=== PATIENT | female | born 1970 | race Caucasian/White ===

== ENCOUNTER 2018-07-07 22:24 | Emergency (ER) | payer BC, OTHER ==
[2018-07-07] MEDS ORDERED: ASPIRIN 81 MG TABLET, CHEWABLE PO ONE (23:16)
[2018-07-08] MEDS ORDERED: IPRATROPIUM/ALBUTEROL 0.5-2.5 MG/3 ML AMPUL NEB ONE (00:28)
--- NOTE | 2018-07-08 00:34 | ER Document Report ---
ED Medical Screen (RME) - General Chief Complaint: Chest Pain Stated Complaint: CHEST PAIN Time Seen by Provider: 07/08/18 00:27 Mode of Arrival: Ambulatory Information source: Patient Notes: Patient is a 48-year-old female who presents to the emergency department with cough, sore throat, chest pain and shortness of breath. Patient reports that she has had chest pain for 10 days after spraying and aerosolized brush killer in her yard which she accidentally inhaled. Patient reports that over the last 3-4 days she has had shortness of breath with cough, patient is unable to take a full breath without having bronchospasm. Patient denies any nausea, vomiting or diaphoresis, and patient denies any radiation of the chest pain. Exam: Lung sounds clear to auscultation bilaterally, bronchospasm with deep breath. I have greeted and performed a rapid initial assessment of this patient. A comprehensive ED assessment and evaluation of the patient, analysis of test results and completion of the medical decision making process will be conducted by additional ED providers. Dictation of this chart was performed using voice recognition software; therefore, there may be some unintended grammatical errors. TRAVEL OUTSIDE OF THE [place] IN LAST 30 DAYS: No - Related Data Allergies/Adverse Reactions: No Known Allergies Allergy (Unverified 07/07/18 22:30) Physical Exam - Vital signs Vitals: Temp Pulse Resp BP Pulse Ox 100.2 F 106 H 16 126/76 H 94 07/07/18 22:40 07/07/18 22:40 07/07/18 22:40 07/07/18 22:40 07/07/18 22:40 Course - Vital Signs Vital signs: Temp Pulse Resp BP Pulse Ox 100.2 F 106 H 16 126/76 H 94 07/07/18 22:40 07/07/18 22:40 07/07/18 22:40 07/07/18 22:40 07/07/18 22:40 - Laboratory Result Diagrams: 07/07/18 23:43 07/07/18 23:43 Doctor's Discharge - Discharge Referrals: BRODY SWAIN MD [Primary Care Provider] - Follow up as needed
[2018-07-08 00:36] LABS: ABSOLUTE EOSINOPHILS # (AUTO) 0.5 10^3/uL (0.0-0.6); ABSOLUTE LYMPHOCYTES (AUTO) 1.4 10^3/uL (0.5-4.7); ABSOLUTE MONOCYTES (AUTO) 0.7 10^3/uL (0.1-1.4); ABSOLUTE NEUT (AUTO) 7.4 10^3/uL (1.7-8.2); BASOPHILS % (AUTO) 0.1 % (0-2); EOSINOPHILS % (AUTO) 5.2 % (0-6); HEMOGLOBIN 13.3 g/dL (12.0-15.5); LYMPHOCYTES % (AUTO) 13.6 % (13-45); MEAN CORPUSCULAR HEMOGLOBIN 29.3 pg (27.0-33.4); MEAN CORPUSCULAR HGB CONC 33.3 g/dL (32.0-36.0); MEAN CORPUSCULAR VOLUME 88 fl (80-97); MONOCYTES % (AUTO) 7.3 % (3-13); PLATELET COUNT 279 10^3/uL (150-450); RED BLOOD COUNT 4.55 10^6/uL (3.72-5.28); RED CELL DISTRIBUTION WIDTH 13.4 % (11.5-14.0); SEGMENTED NEUTROPHILS % (AUTO) 73.8 % (42-78); TOTAL CELLS COUNTED % (AUTO) 100 %
[2018-07-08 01:02] LABS: ALANINE AMINOTRANSFERASE 32 U/L (9-52); ALBUMIN 4.2 g/dL (3.5-5.0); ALKALINE PHOSPHATASE 106 U/L (38-126); ANION GAP 14 (5-19); ASPARTATE AMINO TRANSFERASE 19 U/L (14-36); BILIRUBIN,DIRECT 0.2 mg/dL (0.0-0.4); BILIRUBIN,TOTAL 0.5 mg/dL (0.2-1.3); BLOOD UREA NITROGEN 13 mg/dL (7-20); CALCIUM 9.2 mg/dL (8.4-10.2); CARBON DIOXIDE 27 mmol/L (22-30); CHLORIDE 100 mmol/L (98-107); CREATINE KINASE 53 U/L (30-135); GLUCOSE 121 mg/dL (75-110); POTASSIUM 4.5 mmol/L (3.6-5.0); SODIUM 140.5 mmol/L (137-145); TOTAL PROTEIN 7.3 g/dL (6.3-8.2)
[2018-07-08 01:24] LABS: CREATINE KINASE MB 0.43 ng/mL (<4.55); TROPONIN I < 0.012 ng/mL
--- NOTE | 2018-07-08 02:34 | RADIOLOGY REPORT (SQ) ---
Chest single view on 07/07/2018 at 11:44 PM CLINICAL INDICATION: Chest pain COMPARISON: None FINDINGS: There is mild patchy left lower lung opacity consistent with atelectasis or early pneumonia. Lungs are otherwise clear. Cardiac, hilar and mediastinal contours are within normal limits. Pulmonary vascularity is within normal limits. IMPRESSION: Mild area of atelectasis or early pneumonia in the left lower lobe.
[2018-07-08] MEDS ORDERED: DOXYCYCLINE HYCLATE 100 MG TABLET PO ONE (02:46)
[2018-07-08] MEDS ORDERED: ALBUTEROL SULFATE HFA (90 MCG/PUFF) 200 PUFF/8.5 GM MDI IH ONE (02:46)
[2018-07-08] MEDS ORDERED: BENZONATATE 100 MG CAPSULE PO ONE (02:48)
--- NOTE | 2018-07-08 02:49 | ER Document Report ---
ED General - General Chief Complaint: Chest Pain Stated Complaint: CHEST PAIN Time Seen by Provider: 07/08/18 00:27 Mode of Arrival: Ambulatory Notes: Patient is a 48-year-old female without chronic medical problems, prior smoker who presents with 3 days of cough and fever. She was seen in an alternative emergency department yesterday, was diagnosed with shingles on her left low back and subsequently discharged home with a prescription for norco for her cough. Apparently a chest x-ray was obtained at that time and she was told it was normal. The patient however returns to the emergency department today as she states that the coughing has become more severe and she feels somewhat short of breath. She also complains of a diffuse chest wall pain that is a stabbing, moderate to severe pain present when she coughs and shortly thereafter. She denies any pain unrelated to coughing episodes. She denies any hemoptysis, weakness, numbness, confusion, headache, or abdominal pain. No vomiting or diarrhea. No history of similar symptoms in the past. She has tried [id number] Mucinex without relief of her symptoms. Nothing worsens her cough. TRAVEL OUTSIDE OF THE [place] IN LAST 30 DAYS: No - Related Data Allergies/Adverse Reactions: No Known Allergies Allergy (Unverified 07/07/18 22:30) Past Medical History - General Information source: Patient - Social History Smoking Status: Former Smoker Chew tobacco use (# tins/day): No Frequency of alcohol use: None Drug Abuse: None Lives with: Spouse/Significant other Family History: Reviewed & Not Pertinent Patient has suicidal ideation: No Patient has homicidal ideation: No Renal/ Medical History: Denies: Hx Peritoneal Dialysis Review of Systems - Review of Systems Notes: Constitutional: Positive for fever. HENT: Negative for sore throat. Eyes: Negative for visual changes. Cardiovascular: Positive for chest pain. Respiratory: Positive shortness of breath and cough Gastrointestinal: Negative for abdominal pain, vomiting or diarrhea. Genitourinary: Negative for dysuria. Musculoskeletal: Negative for back pain. Skin: Negative for rash. Neurological: Negative for headaches, weakness or numbness. 10 point ROS negative except as marked above and in HPI. Physical Exam - Vital signs Vitals: Temp Pulse Resp BP Pulse Ox 100.2 F 106 H 16 126/76 H 94 07/07/18 22:40 07/07/18 22:40 07/07/18 22:40 07/07/18 22:40 07/07/18 22:40 Interpretation: Tachycardic Notes: PHYSICAL EXAMINATION: GENERAL: Well-appearing, well-nourished and in no acute distress. HEAD: Atraumatic, normocephalic. EYES: Pupils equal round and reactive to light, extraocular movements intact, sclera anicteric, conjunctiva are normal. ENT: nares patent, oropharynx clear without exudates. Moderately dry mucous membranes. NECK: Normal range of motion, supple without lymphadenopathy LUNGS: Slightly diminished at the left base, no tachypnea or wheezing. HEART: Regular rate and rhythm without murmurs ABDOMEN: Soft, nontender, normoactive bowel sounds. No guarding, no rebound. No masses appreciated. EXTREMITIES: Normal range of motion, no pitting or edema. No cyanosis. NEUROLOGICAL: No focal neurological deficits. Moves all extremities spontaneously and on command. PSYCH: Normal mood, normal affect. SKIN: Warm, Dry, normal turgor, healing scabbed lesions to the left flank and low back consistent with healing herpes zoster Course - Re-evaluation Re-evalutation: 07/08/18 02:48 Patient presents with persistent cough with associated diffuse chest discomfort with coughing. Her chest discomfort appears to be most likely related to intercostal discomfort from 4-5 days of persistent cough. Her chest x-ray does show a left lower lobe pneumonia which has been treated with doxycycline. Her curb 65 score is 0 and she is appropriate for outpatient management. No hypoxia. Labs otherwise unremarkable. Clinical history is not consistent with ACS or an acute pulmonary embolus. Chest x-ray without evidence of a pneumothorax. Vitals otherwise within acceptable limits. At this time will discharge with return precautions and follow-up recommendations. Verbal discharge instructions given a the bedside and opportunity for questions given. Medication warnings reviewed. Patient is in agreement with this plan and has verbalized understanding of return precautions and the need for primary care follow-up in the next 24-72 hours. - Vital Signs Vital signs: Temp Pulse Resp BP Pulse Ox 98.9 F 83 18 125/70 95 07/08/18 03:12 07/08/18 03:12 07/08/18 03:12 07/08/18 03:12 07/08/18 03:12 - Laboratory Result Diagrams: 07/07/18 23:43 07/07/18 23:43 Laboratory results interpreted by me: 07/07/18 23:43 Glucose 121 H - Diagnostic Test Radiology reviewed: Image reviewed, Reports reviewed Radiology results interpreted by me: 07/08/18 02:49 Chest x-ray: Left lower lobe infiltrate consistent with an acute pneumonia - EKG Interpretation by Me Additional EKG results interpreted by me: 07/08/18 04:48 Sinus tachycardia. Rate 108. No ST elevations or depressions. QTC is 435. Discharge - Discharge Clinical Impression: Costochondritis, acute, Chest discomfort Left lower lobe pneumonia Qualifiers: Pneumonia type: due to unspecified organism Qualified Code(s): J18.1 - Lobar pneumonia, unspecified organism Condition: Good Disposition: HOME, SELF-CARE Additional Instructions: You have been diagnosed with a pneumonia. It is very important that you take all of your antibiotics until they are gone even if you are feeling better. Please return to the emergency department immediately if you began having worsening shortness of breath, become confused, have worsening pain, pass out, have persistent vomiting that prevents you from being able to drink fluids for more than 12 hours, or have any other symptoms that are worrisome to you. Please follow-up with your primary care doctor in the next 1-2 days. For your pain: Take ibuprofen 600 mg and acetaminophen 1000 mg every 6 hours together as needed for pain. Prescriptions: Benzonatate [Tessalon Perles 100 mg Capsule] 100 mg PO Q8HP PRN #40 capsule PRN Reason: Doxycycline Hyclate 100 mg PO BID #14 capsule Referrals: BRODY SWAIN MD [[facility]ON[facility]] - Follow up as needed
[2018-07-08 03:17] VITALS: BP 125/70
--- NOTE | 2018-07-08 07:35 | EKG REPORT ---
SEVERITY:- OTHERWISE NORMAL ECG - SINUS TACHYCARDIA : Confirmed by: Dany Murray MD 08-Jul-2018 07:34:34
== END 2018-07-08 03:12 | disposition home or self-care (01) ==
LOC: ER 22:24
DX: J18.1 Lobar pneumonia, unspecified organism (principal); M94.0 Chondrocostal junction syndrome [Tietze]; B02.9 Zoster without complications; R07.89 Other chest pain; R05 Cough; R50.9 Fever, unspecified; R06.02 Shortness of breath; R00.0 Tachycardia, unspecified; Z87.891 Personal history of nicotine dependence
CPT/HCPCS: 93005; 94640; 99285; 36415; 82553; 82550; 85025; 80053; 84484; 71045; 93010; J3490; J7620